=== PATIENT | male | born 1940 | race Caucasian/White ===

== ENCOUNTER 2023-12-07 15:10 | Inpatient (IN) | payer MEDICARE, BC ==
[~2023-12-07] VITALS: Ht 177.8 cm; Wt 92.1 kg
[2023-12-07] MEDS: PIPERACILLIN /TAZOBACTAM 3.375 G in IV D5W 50 ML IV ONE (15:30)
[2023-12-07 15:52] LABS: BASOPHILS % (AUTO) 0.2 % (0.0-2.0); EOSINOPHILS % (AUTO) 0.3 % (0.0-6.0); HEMATOCRIT 40 % (39-51); HEMOGLOBIN 13.5 g/dL (13.5-17.5); LYMPHOCYTES # (AUTO) 1.3 K/uL (0.8-4.8); LYMPHOCYTES % (AUTO) 11.2 % (20.0-44.0); MEAN CORPUSCULAR HEMOGLOBIN 32 PG (26.0-33.0); MEAN CORPUSCULAR HGB CONC 34 g/dl (31.0-36.0); MEAN CORPUSCULAR VOLUME 94 fL (80-96); MONOCYTES # (AUTO) 0.9 K/uL (0.1-1.30); MONOCYTES % (AUTO) 7.3 % (2.0-12.0); NEUTROPHILS # (AUTO) 9.5 K/uL (1.8-8.9); PLATELET COUNT (AUTO) 271 K/uL (150-450); RED BLOOD CELL COUNT(AUTO) 4.27 MIL/uL (4.5-6.0); RED CELL DISTRIBUTION WIDTH 13.5 % (11.5-15.0); WHITE BLOOD COUNT (AUTO) 11.7 K/uL (4.3-11.0)
[2023-12-07] MEDS: VANCOMYCIN 1 GM in IV D5W 250 ML IV ONE (16:00)
[2023-12-07 16:01] LABS: CALCIUM, SERUM 9.1 mg/dL (8.5-10.1); CARBON DIOXIDE 24 mmol/L (21-32); CHLORIDE 103 mmol/L (98-107); CREATININE 1.4 mg/dL (0.6-1.3); GLUCOSE 134 mg/dL (74-106); POTASSIUM 3.5 mmol/L (3.5-5.1); SODIUM SERUM 139 mmol/L (136-145); UREA NITROGEN, BLOOD 19 mg/dL (7-18)
[2023-12-07 16:04] LABS: INR 1.14 (0.91-1.10); PARTIAL THROMBOPLASTIN TIME 33.1 SEC (24.3-34.3)
[2023-12-07 16:11] LABS: LACTIC ACID 2.9 mmol/L (0.4-2.0)
[2023-12-07] MEDS ORDERED: PRAV40TA3 PO (16:14)
[2023-12-07] MEDS ORDERED: ASPI-1169 PO (16:14)
[2023-12-07] MEDS ORDERED: ESCI5TAB PO (16:14)
[2023-12-07] MEDS ORDERED: ATEN25TA PO (16:14)
[2023-12-07] MEDS ORDERED: APIX2.5T PO (16:14)
[2023-12-07] MEDS ORDERED: EZET10TA16 PO (16:14)
[2023-12-07] MEDS ORDERED: DOCU50CA13 PO (16:14)
[2023-12-07 16:15] LABS: ALANINE AMINOTRANSFERASE 26 U/L (12-78); ALBUMIN 3.3 g/dL (3.4-5.0); ALKALINE PHOSPHATASE 94 U/L (46-116); ASPARTATE AMINOTRANSFERASE 17 U/L (15-37); BILIRUBIN,DIRECT 0.2 mg/dL (0.0-0.2); BILIRUBIN,TOTAL 0.7 mg/dL (0.2-1.0); TOTAL PROTEIN, SERUM 7.5 g/dL (6.4-8.2)
[2023-12-07] MEDS ORDERED: ACETAMINOPHEN 650 MG/SUPP.RECT RC ONE (16:25)
[2023-12-07] MEDS: ACETAMINOPHEN 650 MG/SUPP.RECT RC ONE (16:30)
[2023-12-07] MEDS: IV NS 0.9% 1,000 ML BAG IV ONE (16:30)
[2023-12-07 18:12] LABS: APPEARANCE,URINE CLEAR (CLEAR); BILIRUBIN,URINE NEGATIVE (NEGATIVE); BLOOD, URINE TRACE-INTA Ery/uL (NEGATIVE); COLOR,URINE YELLOW (YELLOW); KETONES,URINE NEGATIVE (NEGATIVE); LEUKOCYTE ESTERASE ,URINE NEGATIVE (NEGATIVE); NITRITE, URINE NEGATIVE (NEGATIVE); PROTEIN,URINE TRACE mg/dl (NEGATIVE); UGLUCOSE NEGATIVE (NEGATIVE)
[2023-12-07 18:16] LABS: ADD URINE CULTURE NO; BACTERIA,URINE Rare /HPF (None Seen); SQUAMOUS EPITHELIAL CELL,UR Few /HPF (None Seen); WBC,URINE 0-2 /HPF (0-3)
[2023-12-07] MEDS ORDERED: ONDANSETRON HCL/PF 4 MG/2 ML VIAL IVP PRN (20:00)
[2023-12-07] MEDS ORDERED: ACETAMINOPHEN 325 MG TABLET PO PRN (20:00)
[2023-12-07] MEDS ORDERED: ENOXAPARIN SODIUM 40 MG/0.4 ML DISP.SYRIN SQ SCH (20:00)
[2023-12-07 20:30] VITALS: BP 140/61; TEMP 99; O2SAT 92
[2023-12-07] MEDS: IV NS 0.9% 1,000 ML IV PRN (21:59)
[2023-12-07] MEDS: ATORVASTATIN 10 MG TABLET PO SCH (22:00)
[2023-12-07] MEDS: DOCUSATE SODIUM 100 MG CAPSULE PO SCH (22:02)
[2023-12-07] MEDS: ZOSYN IVPB 3.375 G in IV D5W 50ml IV SCH (22:05)
[2023-12-07 22:08] VITALS: BP 140/61; TEMP 99; O2SAT 91
[2023-12-08] VITALS (7 sets, daily range): BP systolic 115–144; BP diastolic 55–63; TEMP 98.1–99; O2SAT 96–99
[2023-12-08 05:56] LABS: BASOPHILS % (AUTO) 0.4 % (0.0-2.0); EOSINOPHILS # (AUTO) 0.3 K/uL (0.0-0.7); EOSINOPHILS % (AUTO) 4.1 % (0.0-6.0); HEMATOCRIT 35 % (39-51); HEMOGLOBIN 12.2 g/dL (13.5-17.5); LYMPHOCYTES # (AUTO) 0.9 K/uL (0.8-4.8); LYMPHOCYTES % (AUTO) 11.2 % (20.0-44.0); MEAN CORPUSCULAR HEMOGLOBIN 32 PG (26.0-33.0); MEAN CORPUSCULAR HGB CONC 34 g/dl (31.0-36.0); MEAN CORPUSCULAR VOLUME 93 fL (80-96); MONOCYTES # (AUTO) 0.7 K/uL (0.1-1.30); MONOCYTES % (AUTO) 9.3 % (2.0-12.0); NEUTROPHILS # (AUTO) 5.9 K/uL (1.8-8.9); PLATELET COUNT (AUTO) 220 K/uL (150-450); RED CELL DISTRIBUTION WIDTH 13.5 % (11.5-15.0); WHITE BLOOD COUNT (AUTO) 7.8 K/uL (4.3-11.0)
[2023-12-08 06:02] LABS: CHOLESTEROL 99 mg/dL (<200); HDL CHOLESTEROL 35 mg/dL (40-60); LDL 52 mg/dL (0-99); TRIGLYCERIDES 55 mg/dL (30-150)
[2023-12-08 06:03] LABS: CARBON DIOXIDE 23 mmol/L (21-32); CHLORIDE 108 mmol/L (98-107); CREATININE 1.2 mg/dL (0.6-1.3); GLUCOSE 133 mg/dL (74-106); MAGNESIUM 2.1 mg/dL (1.8-2.4); PHOSPHORUS 2.8 mg/dL (2.5-4.9); POTASSIUM 3.4 mmol/L (3.5-5.1); SODIUM SERUM 140 mmol/L (136-145); UREA NITROGEN, BLOOD 17 mg/dL (7-18)
[2023-12-08] MEDS: LEVOTHYROXINE SODIUM 25 MCG TABLET PO SCH (07:43)
[2023-12-08] MEDS: APIXABAN 2.5 MG TABLET PO SCH ×2 (09:04→21:12)
[2023-12-08] MEDS: EZETIMIBE 10 MG TABLET PO SCH (09:07)
[2023-12-08] MEDS: ESCITALOPRAM OXALATE (10 MG) 10 MG TABLET PO SCH (09:07)
[2023-12-08] MEDS: ASPIRIN 81 MG TAB.CHEW PO SCH (09:07)
[2023-12-08] MEDS: ATENOLOL 25 MG TABLET PO SCH (09:11)
[2023-12-08] MEDS: POTASSIUM CHLORIDE 20 MEQ TAB.PRT.SR PO ONE (09:45)
[2023-12-08] MEDS: VANCOMYCIN HCL 1.25 GM in IV D5W 250 ML IV SCH (16:05)
[2023-12-09] VITALS: BP 128/71; TEMP 98; O2SAT 96
[2023-12-09 04:00] VITALS: BP_SYST 128; BP_SYST 143; BP_DIAS 58; BP_DIAS 71; TEMP 98; TEMP 98.2; O2SAT 96
[2023-12-09 06:13] LABS: BASOPHILS % (AUTO) 0.5 % (0.0-2.0); EOSINOPHILS # (AUTO) 0.9 K/uL (0.0-0.7); EOSINOPHILS % (AUTO) 11.6 % (0.0-6.0); HEMATOCRIT 36 % (39-51); HEMOGLOBIN 12.2 g/dL (13.5-17.5); LYMPHOCYTES # (AUTO) 1.3 K/uL (0.8-4.8); LYMPHOCYTES % (AUTO) 16.3 % (20.0-44.0); MEAN CORPUSCULAR HEMOGLOBIN 32 PG (26.0-33.0); MEAN CORPUSCULAR HGB CONC 34 g/dl (31.0-36.0); MEAN CORPUSCULAR VOLUME 92 fL (80-96); MONOCYTES # (AUTO) 0.7 K/uL (0.1-1.30); NEUTROPHILS % (AUTO) 62.6 % (43.0-81.0); PLATELET COUNT (AUTO) 232 K/uL (150-450); RED BLOOD CELL COUNT(AUTO) 3.86 MIL/uL (4.5-6.0); RED CELL DISTRIBUTION WIDTH 13.2 % (11.5-15.0)
[2023-12-09 06:29] LABS: CALCIUM, SERUM 8.8 mg/dL (8.5-10.1); CARBON DIOXIDE 22 mmol/L (21-32); CHLORIDE 107 mmol/L (98-107); CREATININE 1.2 mg/dL (0.6-1.3); GLUCOSE 102 mg/dL (74-106); MAGNESIUM 2.1 mg/dL (1.8-2.4); PHOSPHORUS 2.9 mg/dL (2.5-4.9); POTASSIUM 3.7 mmol/L (3.5-5.1); SODIUM SERUM 138 mmol/L (136-145); UREA NITROGEN, BLOOD 16 mg/dL (7-18)
[2023-12-09 07:42] LABS: CREATININE, URINE 29.4 MG/DL (30.0-125.0); URINE TOTAL PROTEIN 7.6 mg/dL (0-11.9)
[2023-12-09 08:00] VITALS: BP 152/72; TEMP 98.2; O2SAT 96
[2023-12-09] MEDS: DAKINS QUARTER STRENGTH (0.125%) 480 ML BOTTLE TOP SCH (13:11)
[2023-12-09 16:00] VITALS: BP 141/59; TEMP 98.6; O2SAT 97
[2023-12-09 20:00] VITALS: BP 144/53; TEMP 98.4; O2SAT 97
[2023-12-10] VITALS: BP 146/61; TEMP 98.2; O2SAT 97
[2023-12-10 04:00] VITALS: BP 164/61; TEMP 98; O2SAT 98
[2023-12-10 08:00] VITALS: BP 151/61; TEMP 97.7; O2SAT 96
[2023-12-10 08:43] LABS: BASOPHILS % (AUTO) 0.4 % (0.0-2.0); EOSINOPHILS # (AUTO) 0.8 K/uL (0.0-0.7); HEMATOCRIT 38 % (39-51); HEMOGLOBIN 12.8 g/dL (13.5-17.5); LYMPHOCYTES # (AUTO) 1.3 K/uL (0.8-4.8); LYMPHOCYTES % (AUTO) 17.3 % (20.0-44.0); MEAN CORPUSCULAR HEMOGLOBIN 31 PG (26.0-33.0); MEAN CORPUSCULAR HGB CONC 34 g/dl (31.0-36.0); MEAN CORPUSCULAR VOLUME 92 fL (80-96); MONOCYTES # (AUTO) 0.6 K/uL (0.1-1.30); MONOCYTES % (AUTO) 8.4 % (2.0-12.0); NEUTROPHILS # (AUTO) 4.7 K/uL (1.8-8.9); NEUTROPHILS % (AUTO) 62.9 % (43.0-81.0); PLATELET COUNT (AUTO) 284 K/uL (150-450); RED BLOOD CELL COUNT(AUTO) 4.13 MIL/uL (4.5-6.0); RED CELL DISTRIBUTION WIDTH 13.3 % (11.5-15.0); WHITE BLOOD COUNT (AUTO) 7.5 K/uL (4.3-11.0)
[2023-12-10 08:58] LABS: CALCIUM, SERUM 8.8 mg/dL (8.5-10.1); CREATININE 1.2 mg/dL (0.6-1.3); MAGNESIUM 2.1 mg/dL (1.8-2.4); PHOSPHORUS 3.2 mg/dL (2.5-4.9); POTASSIUM 3.7 mmol/L (3.5-5.1)
[2023-12-10] MEDS ORDERED: AMOX500C2 PO (09:03)
[2023-12-10 12:00] VITALS: BP 157/89; TEMP 97.5; O2SAT 95
[2023-12-10 16:00] VITALS: BP 129/52; TEMP 97.3; O2SAT 95
[2023-12-10] MEDS ORDERED: VANCOMYCIN HCL 1.25 GM in IV D5W 250 ML IV SCH (17:00)
[2023-12-10] MEDS: VANCOMYCIN HCL 1.25 GM in IV D5W 250 ML IV SCH (19:23)
[2023-12-10 20:00] VITALS: BP_SYST 135; BP_DIAS 71; BP_DIAS 75; TEMP 97.7; O2SAT 93
[2023-12-11] VITALS: BP 145/64; TEMP 98.4; O2SAT 96
[2023-12-11 04:52] VITALS: BP 167/71; TEMP 97.9; O2SAT 95
[2023-12-11 06:55] LABS: BASOPHILS % (AUTO) 0.7 % (0.0-2.0); EOSINOPHILS # (AUTO) 0.8 K/uL (0.0-0.7); EOSINOPHILS % (AUTO) 11.5 % (0.0-6.0); HEMATOCRIT 36 % (39-51); HEMOGLOBIN 12.4 g/dL (13.5-17.5); LYMPHOCYTES # (AUTO) 1.4 K/uL (0.8-4.8); LYMPHOCYTES % (AUTO) 20.9 % (20.0-44.0); MEAN CORPUSCULAR HEMOGLOBIN 32 PG (26.0-33.0); MEAN CORPUSCULAR HGB CONC 34 g/dl (31.0-36.0); MEAN CORPUSCULAR VOLUME 93 fL (80-96); MONOCYTES # (AUTO) 0.6 K/uL (0.1-1.30); MONOCYTES % (AUTO) 9.6 % (2.0-12.0); NEUTROPHILS # (AUTO) 3.8 K/uL (1.8-8.9); NEUTROPHILS % (AUTO) 57.3 % (43.0-81.0); PLATELET COUNT (AUTO) 293 K/uL (150-450); RED BLOOD CELL COUNT(AUTO) 3.93 MIL/uL (4.5-6.0); WHITE BLOOD COUNT (AUTO) 6.6 K/uL (4.3-11.0)
[2023-12-11 07:09] LABS: CALCIUM, SERUM 8.7 mg/dL (8.5-10.1); CARBON DIOXIDE 21 mmol/L (21-32); CHLORIDE 106 mmol/L (98-107); CREATININE 1.2 mg/dL (0.6-1.3); GLUCOSE 105 mg/dL (74-106); MAGNESIUM 2.2 mg/dL (1.8-2.4); PHOSPHORUS 3.7 mg/dL (2.5-4.9); POTASSIUM 3.5 mmol/L (3.5-5.1); SODIUM SERUM 140 mmol/L (136-145); UREA NITROGEN, BLOOD 13 mg/dL (7-18)
[2023-12-11] MEDS: VANCOMYCIN 750 MG in IV D5W 250 ML IV SCH (07:35)
[2023-12-11 08:00] VITALS: BP 141/79; TEMP 98.6; O2SAT 92
[2023-12-11] MEDS ORDERED: CLIN300C12 PO (10:26)
[2023-12-11 12:00] VITALS: BP 133/60; TEMP 98.2; O2SAT 93
[2023-12-11 16:00] VITALS: BP 139/65; TEMP 97.3; O2SAT 96
== END 2023-12-11 20:00 | DRG 871 ==
LOC: ER 15:12 → TELE 18:33
PROVIDERS: ADMIT Nurse Practitioner Acute Care; ATTEND Nurse Practitioner Acute Care
DX: A41.9 Sepsis, unspecified organism (principal); G93.41 Metabolic encephalopathy; N17.0 Acute kidney failure with tubular necrosis; J18.9 Pneumonia, unspecified organism; L03.312 Cellulitis of back [any part except buttock and flank]; D68.69 Other thrombophilia; E44.1 Mild protein-calorie malnutrition; E87.20 Acidosis, unspecified; N39.0 Urinary tract infection, site not specified; D64.9 Anemia, unspecified; Z74.09 Other reduced mobility; E03.9 Hypothyroidism, unspecified; E66.9 Obesity, unspecified; E78.5 Hyperlipidemia, unspecified; E87.6 Hypokalemia; E88.09 Other disorders of plasma-protein metabolism, not elsewhere classified; I10 Essential (primary) hypertension; I25.2 Old myocardial infarction; Z79.01 Long term (current) use of anticoagulants; Z79.82 Long term (current) use of aspirin; Z95.5 Presence of coronary angioplasty implant and graft; I25.10 Atherosclerotic heart disease of native coronary artery without angina pectoris; F03.90 Unspecified dementia, unspecified severity, without behavioral disturbance, psychotic disturbance, mood disturbance, and anxiety; M48.00 Spinal stenosis, site unspecified; R53.1 Weakness; R22.0 Localized swelling, mass and lump, head; S00.00XA Unspecified superficial injury of scalp, initial encounter; S20.402A Unspecified superficial injuries of left back wall of thorax, initial encounter; S20.401A Unspecified superficial injuries of right back wall of thorax, initial encounter; X58.XXXA Exposure to other specified factors, initial encounter; Y93.9 Activity, unspecified; Y92.129 Unspecified place in nursing home as the place of occurrence of the external cause; B95.61 Methicillin susceptible Staphylococcus aureus infection as the cause of diseases classified elsewhere; Z68.29 Body mass index [BMI] 29.0-29.9, adult; Z20.822 Contact with and (suspected) exposure to COVID-19
CPT/HCPCS: 36415; 71045-TC; 80048-TC; 80061-TC; 80076-TC; 80202-TC; 81001; 82570-TC; 83605-TC; 83735-TC; 84100-TC; 84300-TC; 84484-TC; 85025-TC; 85730-TC; 87040-TC; 87086-TC; 92526; 92611-TC; 97110-TC; 97112-TC; 97530-TC; 97535-TC; A4223; A6403; G0378; J2543; J3370; J3371; J7030; J7040; J7060